=== PATIENT | female | born 1990 | race Caucasian/White ===

== ENCOUNTER → 2021-03-21 | Outpatient (REF) ==
[2021-03-21 16:37] LABS: RSV AMPLIFICATION NEGATIVE (NEGATIVE)
== END ==
LOC: M EMP 15:09
PROVIDERS: ATTEND Family Medicine
DX: Z11.52 Encounter for screening for COVID-19 (principal); Z20.822 Contact with and (suspected) exposure to COVID-19

== ENCOUNTER → 2021-03-23 | Outpatient (REF) | LOC: M EMP 15:46 | PROVIDERS: ATTEND Family Medicine | DX: Z11.52 Encounter for screening for COVID-19 (principal); Z20.822 Contact with and (suspected) exposure to COVID-19 ==

== ENCOUNTER → 2022-07-23 | Outpatient (REF) | payer OTHER | LOC: M LAB REF 08:49 | PROVIDERS: ATTEND Nurse Practitioner Family | DX: Z12.4 Encounter for screening for malignant neoplasm of cervix (principal) | CPT/HCPCS: 87624; G0123 ==

== ENCOUNTER 2023-01-22 14:01 | Observation (INO) | payer OTHER ==
[~2023-01-22] VITALS: Ht 167.6 cm; Wt 110.7 kg
[~2023-01-22 14:01] MED LIST: ALBU8.5H; ALPR0.5T3 PO; CBD OIL PA; DEXA4TA; FERR325T3 PO; LIDO30CR18 TOP; METO5TAB2 PO; OLAN1TAB16 PO; ONDA-84 PO; ONDA8TAB8 PO; OXYC-517 PO; PROC10TA5 PO; SERT50TA29 PO
[2023-01-22] MEDS ORDERED: METOCLOPRAMIDE INJ 10MG/2ML VIAL IV ONE (15:00)
[2023-01-22 15:01] LABS: BASO % 0.3 % (0.0-1.0); EOS % 0.3 % (0.0-3.0); HEMATOCRIT 30.4 % (36.0-47.0); LYMPH # 0.9 10^3/uL (1.5-5.0); LYMPH % 30.5 % (24.0-44.0); MEAN CORPUSCULAR HEMOGLOBIN 28.2 pg (27.0-33.0); MEAN CORPUSCULAR HGB CONC 32.9 g/dl (32.0-36.5); MEAN CORPUSCULAR VOLUME 85.6 fl (80.0-96.0); MONO # 0.3 10^3/uL (0.0-0.8); MONO % 10.8 % (2.0-8.0); NEUTROPHILS # 1.7 10^3/uL (1.5-8.5); NEUTROPHILS % 56.5 % (36.0-66.0); PLATELET COUNT, AUTOMATED 116 10^3/uL (150-450); RED BLOOD COUNT 3.55 10^6/uL (4.00-5.40); WHITE BLOOD COUNT 3.1 10^3/uL (4.0-10.0)
[2023-01-22 15:10] LABS: INR 1.12; PROTHROMBIN TIME 14.1 SECONDS (12.5-14.5)
[2023-01-22 15:11] LABS: PARTIAL THROMBOPLASTIN TIME 30.6 SECONDS (24.8-34.2)
[2023-01-22 15:29] LABS: LIPASE 32 U/L (12-53)
[2023-01-22 15:31] LABS: ALBUMIN 3.6 G/DL (3.2-5.2); ALKALINE PHOSPHATASE 99 U/L (46-116); ALT/SGPT 27 U/L (7.0-40); AST/SGOT 19 U/L (<34); BILIRUBIN,DIRECT 0.3 MG/DL (<0.4); BILIRUBIN,TOTAL 0.9 MG/DL (0.3-1.2); TOTAL PROTEIN 6.5 G/DL (5.7-8.2)
[2023-01-22] MEDS ORDERED: ISOVUE-370 76% 100ML VIAL As Ordered ONE (15:49)
[2023-01-22 16:52] LABS: CK-MB VALUE MASS < 1.0 NG/ML (<3.6)
[2023-01-22 16:53] LABS: CPK CREATINE PHOSPHOKINASE 31 U/L (34-145); MB/CK RELATIVE INDEX 3.22 (< OR =4)
[2023-01-22 18:15] VITALS: O2SAT 94
[2023-01-22] MEDS ORDERED: MOM 30ML SUSPENSION UDC PO PRN (18:20)
[2023-01-22] MEDS ORDERED: ACETAMINOPHEN TAB 650MG DOSE (2X325MG) PO PRN (18:20)
[2023-01-22] MEDS ORDERED: MAALOX 30 ML SUSP *UDC PO PRN (18:20)
[2023-01-22] MEDS ORDERED: POTASSIUM CHLORIDE 10MEQ SR TABLET PO ONE (19:00)
[2023-01-22] MEDS ORDERED: ONDANSETRON 4MG 2ML VIAL IV PRN (19:00)
[2023-01-22] MEDS ORDERED: HOME MED LIST COMPLETE! XX SCH (19:25)
[2023-01-22 20:00] VITALS: BP 135/84; TEMP 97.8; O2SAT 100
[2023-01-22] MEDS: MAG SULF 1GM/100ML (MAG RUN) 1 GM in IV 1 EA IV SCH ×2 (20:00→21:02)
[2023-01-22] MEDS: KCL 10MEQ/100ML SWI (KRUN) 10 MEQ in IV 1 EA IV SCH ×4 (20:00→23:00)
[2023-01-22] MEDS: DOCUSATE SODIUM 100MG CAPSULE PO SCH (21:02)
[2023-01-22] MEDS: ENOXAPARIN 120MG/0.8ML SYRINGE SC SCH (21:03)
[2023-01-22] MEDS ORDERED: RAMELTEON 8 MG TAB (ROZEREM) PO PRN (22:10)
[2023-01-23 00:15] VITALS: BP 119/76; TEMP 97.3; O2SAT 95
[2023-01-23] MEDS ORDERED: KCL 10MEQ/100ML SWI (KRUN) 10 MEQ in IV 1 EA IV ONE (02:00)
[2023-01-23 04:43] VITALS: BP 119/80; TEMP 97.9; O2SAT 97
[2023-01-23 06:22] LABS: BASO % 0.4 % (0.0-1.0); EOS % 0.4 % (0.0-3.0); HEMATOCRIT 25.8 % (36.0-47.0); HEMOGLOBIN 8.5 g/dl (12.0-15.5); LYMPH # 0.8 10^3/uL (1.5-5.0); LYMPH % 32.9 % (24.0-44.0); MEAN CORPUSCULAR HEMOGLOBIN 28.2 pg (27.0-33.0); MEAN CORPUSCULAR HGB CONC 32.9 g/dl (32.0-36.5); MEAN CORPUSCULAR VOLUME 85.7 fl (80.0-96.0); MONO # 0.4 10^3/uL (0.0-0.8); MONO % 15.6 % (2.0-8.0); NEUTROPHILS # 1.2 10^3/uL (1.5-8.5); NEUTROPHILS % 49.5 % (36.0-66.0); RED BLOOD COUNT 3.01 10^6/uL (4.00-5.40); WHITE BLOOD COUNT 2.4 10^3/uL (4.0-10.0)
[2023-01-23 06:53] LABS: PLATELET COUNT, AUTOMATED 85 10^3/uL (150-450)
[2023-01-23] MEDS ORDERED: LOVE0.01 SC (06:55)
[2023-01-23 07:10] LABS: ALBUMIN 3.2 G/DL (3.2-5.2); ALKALINE PHOSPHATASE 89 U/L (46-116); ALT/SGPT 23 U/L (7.0-40); AST/SGOT 16 U/L (<34); BILIRUBIN,TOTAL 0.7 MG/DL (0.3-1.2); BLOOD UREA NITROGEN 8 MG/DL (9-23); CALCIUM LEVEL 8.7 MG/DL (8.5-10.1); CARBON DIOXIDE LEVEL 31 MMOL/L (20-31); CHLORIDE LEVEL 101 MMOL/L (98-107); CREATININE FOR GFR 0.75 MG/DL (0.55-1.30); GLOMERULAR FILTRATION RATE > 60.0 (>60); GLUCOSE, FASTING 95 MG/DL (60-100); MAGNESIUM LEVEL 2.2 MG/DL (1.8-2.4); POTASSIUM SERUM 3.7 MMOL/L (3.5-5.1); SODIUM LEVEL 138 MMOL/L (136-145); TOTAL PROTEIN 5.7 G/DL (5.7-8.2)
[2023-01-23 08:00] VITALS: BP 123/80; TEMP 97.2; O2SAT 98
[2023-01-23] MEDS: DOCUSATE SODIUM 100MG CAPSULE PO SCH (09:11)
[2023-01-23] MEDS: ENOXAPARIN 120MG/0.8ML SYRINGE SC SCH (09:11)
[2023-01-23 10:54] LABS: HEMOGLOBIN 8.8 g/dl (12.0-15.5)
[2023-01-23 11:37] VITALS: BP 123/73; TEMP 97.9; O2SAT 97
== END 2023-01-23 16:00 | disposition home or self-care (01) ==
LOC: M ED 14:01 → M ED INP 14:02 → M PCU 19:59
PROVIDERS: ADMIT Internal Medicine; ATTEND Internal Medicine
DX: I26.99 Other pulmonary embolism without acute cor pulmonale (principal); I82.432 Acute embolism and thrombosis of left popliteal vein; I82.462 Acute embolism and thrombosis of left calf muscular vein; D61.818 Other pancytopenia; E87.6 Hypokalemia; E83.42 Hypomagnesemia; R14.0 Abdominal distension (gaseous); C22.1 Intrahepatic bile duct carcinoma; D68.2 Hereditary deficiency of other clotting factors; R11.2 Nausea with vomiting, unspecified; E28.2 Polycystic ovarian syndrome; F41.9 Anxiety disorder, unspecified; F32.A Depression, unspecified; Z79.899 Other long term (current) drug therapy; Z83.2 Family history of diseases of the blood and blood-forming organs and certain disorders involving the immune mechanism; Z87.891 Personal history of nicotine dependence
CPT/HCPCS: 36415; 36591; 71275; 76705; 80047; 80053; 80076; 82550; 82553; 83690; 83735; 84439; 84443; 84484; 84702; 85014; 85018; 85025; 85049; 85055; 85610; 85730; 86301; 86850; 86900; 86901; 87635; 93005; 93970; 96372; 96374; 96375; 99284; G0463; J1650; J2405; J2765; J3475; Q9967

== ENCOUNTER → 2023-08-11 | Outpatient (CLI) | payer OTHER ==
[~2023-08-11] MED LIST changes: +ENOX100I3 SQ; +ENOX120I3; +LEXA1TAB PO; +LOVE0.01 SC
[2023-08-11 12:33] LABS: BASO % 0.1 % (0.0-1.0); EOS # 0.1 10^3/uL (0.0-0.5); EOS % 0.9 % (0.0-3.0); HEMATOCRIT 31.4 % (36.0-47.0); HEMOGLOBIN 10.3 g/dl (12.0-15.5); LYMPH # 0.9 10^3/uL (1.5-5.0); LYMPH % 13.9 % (24.0-44.0); MEAN CORPUSCULAR HEMOGLOBIN 28.3 pg (27.0-33.0); MEAN CORPUSCULAR HGB CONC 32.8 g/dl (32.0-36.5); MEAN CORPUSCULAR VOLUME 86.3 fl (80.0-96.0); MONO # 0.4 10^3/uL (0.0-0.8); MONO % 5.3 % (2.0-8.0); NEUTROPHILS # 5.4 10^3/uL (1.5-8.5); NEUTROPHILS % 79.4 % (36.0-66.0); PLATELET COUNT, AUTOMATED 222 10^3/uL (150-450); RED BLOOD COUNT 3.64 10^6/uL (4.00-5.40); WHITE BLOOD COUNT 6.8 10^3/uL (4.0-10.0)
[2023-08-11 13:01] LABS: ALBUMIN 3.2 G/DL (3.2-5.2); ALKALINE PHOSPHATASE 439 U/L (46-116); ALT/SGPT 53 U/L (7.0-40); AST/SGOT 23 U/L (<34); BILIRUBIN,TOTAL 1.4 MG/DL (0.3-1.2); BLOOD UREA NITROGEN 10 MG/DL (9-23); CALCIUM LEVEL 9.1 MG/DL (8.5-10.1); CARBON DIOXIDE LEVEL 31 MMOL/L (20-31); CHLORIDE LEVEL 99 MMOL/L (98-107); CREATININE FOR GFR 0.64 MG/DL (0.55-1.30); GLOMERULAR FILTRATION RATE > 60.0 (>60); GLUCOSE, FASTING 113 MG/DL (60-100); POTASSIUM SERUM 3.7 MMOL/L (3.5-5.1); SODIUM LEVEL 137 MMOL/L (136-145); TOTAL PROTEIN 6.3 G/DL (5.7-8.2)
== END ==
LOC: M LAB 11:27
PROVIDERS: ATTEND Nurse Practitioner
DX: C22.1 Intrahepatic bile duct carcinoma (principal)

== ENCOUNTER 2023-11-08 09:18 | Emergency (ER) | payer OTHER ==
[~2023-11-08] VITALS: Ht 167.6 cm; Wt 79.8 kg
[~2023-11-08 09:18] MED LIST changes: +ONDA-284 PO; -ONDA8TAB8 PO
[2023-11-08] MEDS ORDERED: PROC5TAB57 PO (09:31)
[2023-11-08 12:39] LABS: EOS % 0.7 % (0.0-3.0); HEMATOCRIT 24.5 % (36.0-47.0); HEMOGLOBIN 7.5 g/dl (12.0-15.5); LYMPH # 0.4 10^3/uL (1.5-5.0); LYMPH % 26.7 % (24.0-44.0); MEAN CORPUSCULAR HEMOGLOBIN 28.4 pg (27.0-33.0); MEAN CORPUSCULAR HGB CONC 30.6 g/dl (32.0-36.5); MEAN CORPUSCULAR VOLUME 92.8 fl (80.0-96.0); MONO # 0.2 10^3/uL (0.0-0.8); MONO % 11.6 % (2.0-8.0); NEUTROPHILS % 58.9 % (36.0-66.0); PLATELET COUNT, AUTOMATED 144 10^3/uL (150-450); RED BLOOD COUNT 2.64 10^6/uL (4.00-5.40); WHITE BLOOD COUNT 1.5 10^3/uL (4.0-10.0)
[2023-11-08 12:54] LABS: NEUTROPHILS # 0.9 10^3/uL (1.5-8.5)
[2023-11-08 13:10] LABS: ALBUMIN 3.2 G/DL (3.2-5.2); ALKALINE PHOSPHATASE 341 U/L (46-116); ALT/SGPT 27 U/L (7.0-40); AST/SGOT 23 U/L (<34); BILIRUBIN,TOTAL 0.6 MG/DL (0.3-1.2); BLOOD UREA NITROGEN 8 MG/DL (9-23); CALCIUM LEVEL 8.8 MG/DL (8.5-10.1); CARBON DIOXIDE LEVEL 28 MMOL/L (20-31); CHLORIDE LEVEL 104 MMOL/L (98-107); GLOMERULAR FILTRATION RATE > 60.0 (>60); GLUCOSE, FASTING 90 MG/DL (60-100); SODIUM LEVEL 136 MMOL/L (136-145); TOTAL PROTEIN 5.9 G/DL (5.7-8.2)
[2023-11-08 13:13] VITALS: BP 131/86; TEMP 98.7; O2SAT 99
== END 2023-11-08 13:59 | disposition home or self-care (01) ==
LOC: M ED 09:18
DX: R93.5 Abnormal findings on diagnostic imaging of other abdominal regions, including retroperitoneum (principal); C22.1 Intrahepatic bile duct carcinoma; C79.63 Secondary malignant neoplasm of bilateral ovaries; D68.51 Activated protein C resistance; Z79.899 Other long term (current) drug therapy

== ENCOUNTER 2023-12-14 16:42 | Inpatient (IN) | payer OTHER ==
[~2023-12-14] VITALS: Ht 167.6 cm; Wt 74.6 kg
[~2023-12-14 16:42] MED LIST changes: +PROC5TAB57 PO
[2023-12-14] MEDS: MORPHINE 2 MG/ML 1ML VIAL IV ONE (18:20)
[2023-12-14 18:30] LABS: HEMATOCRIT 25.3 % (36.0-47.0); HEMOGLOBIN 7.8 g/dl (12.0-15.5); MEAN CORPUSCULAR HEMOGLOBIN 28.7 pg (27.0-33.0); MEAN CORPUSCULAR HGB CONC 30.8 g/dl (32.0-36.5); PLATELET COUNT, AUTOMATED 142 10^3/uL (150-450); RED BLOOD COUNT 2.72 10^6/uL (4.00-5.40); WHITE BLOOD COUNT 20.6 10^3/uL (4.0-10.0)
[2023-12-14] MEDS ORDERED: SODIUM CHLORIDE 0.9% INJ 10 ML SYR IV PRN (18:55)
[2023-12-14 18:56] LABS: LYMPHOCYTES 6 % (16-44); MONOCYTES 1 % (0-5); NEUTROPHILS 85 % (28-66)
[2023-12-14 18:57] LABS: ANISOCYTOSIS 2+; HYPOCHROMASIA 1+; PLATELET ESTIMATE DECREASED (NORMAL); POLYCHROMASIA 1+
[2023-12-14 18:58] LABS: ALBUMIN 2.1 G/DL (3.2-5.2); ALKALINE PHOSPHATASE 539 U/L (46-116); ALT/SGPT 55 U/L (7.0-40); AST/SGOT 9 U/L (<34); BILIRUBIN,DIRECT 1.7 MG/DL (<0.4); BILIRUBIN,TOTAL 2.5 MG/DL (0.3-1.2); BLOOD UREA NITROGEN 14 MG/DL (9-23); CARBON DIOXIDE LEVEL 28 MMOL/L (20-31); CHLORIDE LEVEL 100 MMOL/L (98-107); CREATININE FOR GFR 0.49 MG/DL (0.55-1.30); GLOMERULAR FILTRATION RATE > 60.0 (>60); GLUCOSE, FASTING 115 MG/DL (60-100); POTASSIUM SERUM 4.3 MMOL/L (3.5-5.1); SODIUM LEVEL 129 MMOL/L (136-145); TOTAL PROTEIN 5.1 G/DL (5.7-8.2)
[2023-12-14] MEDS: NS 1,000 ML IV ONE (19:15)
[2023-12-14] MEDS: ONDANSETRON 4MG 2ML VIAL IV ONE (19:15)
[2023-12-14] MEDS ORDERED: ISOVUE-370 76% 100ML VIAL As Ordered ONE (19:29)
[2023-12-14] MEDS ORDERED: ONDANSETRON 4MG 2ML VIAL IV PRN (21:35)
[2023-12-14] MEDS: HYDROMORPHONE HCL 0.5 MG/ 0.5 ML SYRINGE IV PRN (22:13)
[2023-12-14] MEDS: PIPERACILLIN/TAZOBACTAM SOD 4.5 GM in D5W MINI-BAG PLUS 50 ML IV ONE (22:15)
[2023-12-14] MEDS: metroNIDAZOLE 500 MG in IV 1 EA IV ONE (23:40)
[2023-12-15] MEDS: KCL 20MEQ in NS 1000ML 1,000 ML IV SCH (00:48)
[2023-12-15] MEDS ORDERED: ONDANSETRON 4MG 2ML VIAL IV PRN (01:00)
[2023-12-15] MEDS ORDERED: DEXA4TA PO (01:50)
[2023-12-15] MEDS ORDERED: DEXA2TA PO (01:50)
[2023-12-15] MEDS ORDERED: ENOX80IN3 INJ (01:50)
[2023-12-15] MEDS ORDERED: PROC10TA5 PO (01:50)
[2023-12-15] MEDS ORDERED: HOME MED LIST COMPLETE! XX SCH (01:55)
[2023-12-15] MEDS: PIPERACILLIN/TAZOBACTAM SOD 4.5 GM in D5W MINI-BAG PLUS 50 ML IV SCH ×2 (04:44→13:31)
[2023-12-15] MEDS: metroNIDAZOLE 500 MG in IV 1 EA IV SCH (06:01)
[2023-12-15] MEDS ORDERED: ALPRAZolam 0.5 MG TAB PO PRN (07:10)
[2023-12-15] MEDS: HYDROMORPHONE HCL 0.5 MG/ 0.5 ML SYRINGE IV PRN (07:42)
[2023-12-15 08:38] LABS: CHLORIDE,RANDOM URINE 32 MMOL/L
[2023-12-15 08:48] LABS: CREATININE,RANDOM URINE 132.4 MG/DL
[2023-12-15 08:50] LABS: SODIUM,RANDOM URINE < 10 MMOL/L
[2023-12-15 08:53] LABS: HEMATOCRIT 26.4 % (36.0-47.0); MEAN CORPUSCULAR HEMOGLOBIN 28.2 pg (27.0-33.0); MEAN CORPUSCULAR HGB CONC 30.3 g/dl (32.0-36.5); PLATELET COUNT, AUTOMATED 153 10^3/uL (150-450); RED BLOOD COUNT 2.84 10^6/uL (4.00-5.40); WHITE BLOOD COUNT 17.9 10^3/uL (4.0-10.0)
[2023-12-15 09:05] LABS: OSMOLALITY URINE 800 MOSM/KG (50-1400)
[2023-12-15 09:19] LABS: ANISOCYTOSIS 1+; LYMPHOCYTES 3 % (16-44); MONOCYTES 4 % (0-5); NEUTROPHILS 93 % (28-66); PLATELET CLUMPS SMALL AMT; PLATELET ESTIMATE NORMAL (NORMAL); POIKILOCYTOSIS 1+; POLYCHROMASIA 1+
[2023-12-15 09:24] LABS: OSMOLALITY SERUM 274 MOSM/KG (275-295)
[2023-12-15 09:30] LABS: ALKALINE PHOSPHATASE 457 U/L (46-116); ALT/SGPT 42 U/L (7.0-40); AST/SGOT 9 U/L (<34); BLOOD UREA NITROGEN 13 MG/DL (9-23); CALCIUM LEVEL 8.2 MG/DL (8.5-10.1); CARBON DIOXIDE LEVEL 25 MMOL/L (20-31); CHLORIDE LEVEL 102 MMOL/L (98-107); CREATININE FOR GFR 0.51 MG/DL (0.55-1.30); GLOMERULAR FILTRATION RATE > 60.0 (>60); GLUCOSE, FASTING 119 MG/DL (60-100); POTASSIUM SERUM 4.5 MMOL/L (3.5-5.1); SODIUM LEVEL 132 MMOL/L (136-145); TOTAL PROTEIN 4.9 G/DL (5.7-8.2)
[2023-12-15] MEDS ORDERED: NS 1,000 ML IV SCH ×2 (09:30→11:35)
[2023-12-15 09:37] LABS: PROCALCITONIN 1.14 ng/ml
[2023-12-15] MEDS ORDERED: LIDOCAINE 1% MDV 20ML VIAL As Ordered ONE (10:18)
[2023-12-15] MEDS ORDERED: ISOVUE-300 61% 100ML VIAL As Ordered ONE (10:18)
[2023-12-15] MEDS ORDERED: fentaNYL 100 MCG/2 ML INJECTION As Ordered ONE (10:37)
[2023-12-15] MEDS ORDERED: MIDAZOLAM INJ 2MG/2ML VIAL As Ordered ONE (10:38)
[2023-12-15 10:41] LABS: INR 1.45; PROTHROMBIN TIME 17.2 SECONDS (12.5-14.5)
[2023-12-15] MEDS: PANTOPRAZOLE 40MG VIAL IV SCH (12:12)
[2023-12-15] MEDS: LR 1,000 ML IV SCH (12:21)
[2023-12-15 15:09] VITALS: BP 141/89; TEMP 100.1; O2SAT 95
[2023-12-15 15:27] VITALS: O2SAT 96
[2023-12-15] MEDS ORDERED: VANCOMYCIN HCL 1,000 MG, VIAL MATE ADAPTER 1 EACH in D5W 250 ML IV SCH (15:30)
[2023-12-15] MEDS ORDERED: ACETAMINOPHEN TAB 650MG DOSE (2X325MG) PO PRN (15:45)
[2023-12-15 16:00] VITALS: BP 131/88; TEMP 98.1; O2SAT 97
[2023-12-15] MEDS: ACETAMINOPHEN *IV* 1,000 MG in IV 1 EA IV ONE (16:20)
[2023-12-15] MEDS: NS 500 ML IV ONE (16:21)
[2023-12-15] MEDS: VANCOMYCIN HCL 750 MG, VIAL MATE ADAPTER 1 EACH in D5W 250 ML IV ONE ×2 (16:21→18:11)
[2023-12-15 20:00] VITALS: BP 130/92; TEMP 96; O2SAT 98
[2023-12-15] MEDS: VANCOMYCIN HCL 750 MG, VIAL MATE ADAPTER 1 EACH in D5W 250 ML IV SCH (22:22)
[2023-12-15] MEDS: VANCOMYCIN HCL 500 MG in D5W MINI-BAG PLUS 100 ML IV SCH (23:28)
[2023-12-16] VITALS (7 sets, daily range): BP systolic 121–137; BP diastolic 56–90; TEMP 96.7–98.5; O2SAT 93–98
[2023-12-16 06:19] LABS: BASO % 0.2 % (0.0-1.0); EOS # 0.1 10^3/uL (0.0-0.5); EOS % 0.8 % (0.0-3.0); HEMATOCRIT 25.1 % (36.0-47.0); HEMOGLOBIN 7.3 g/dl (12.0-15.5); LYMPH # 0.5 10^3/uL (1.5-5.0); LYMPH % 4.7 % (24.0-44.0); MEAN CORPUSCULAR HEMOGLOBIN 27.5 pg (27.0-33.0); MEAN CORPUSCULAR HGB CONC 29.1 g/dl (32.0-36.5); MEAN CORPUSCULAR VOLUME 94.7 fl (80.0-96.0); MONO # 0.6 10^3/uL (0.0-0.8); MONO % 5.1 % (2.0-8.0); NEUTROPHILS # 10.2 10^3/uL (1.5-8.5); NEUTROPHILS % 88.7 % (36.0-66.0); PLATELET COUNT, AUTOMATED 143 10^3/uL (150-450); RED BLOOD COUNT 2.65 10^6/uL (4.00-5.40); WHITE BLOOD COUNT 11.5 10^3/uL (4.0-10.0)
[2023-12-16 06:45] LABS: ALBUMIN 1.8 G/DL (3.2-5.2); ALKALINE PHOSPHATASE 455 U/L (46-116); ALT/SGPT 35 U/L (7.0-40); AST/SGOT 23 U/L (<34); BILIRUBIN,TOTAL 2.1 MG/DL (0.3-1.2); BLOOD UREA NITROGEN 11 MG/DL (9-23); CARBON DIOXIDE LEVEL 26 MMOL/L (20-31); CHLORIDE LEVEL 101 MMOL/L (98-107); CREATININE FOR GFR 0.42 MG/DL (0.55-1.30); GLOMERULAR FILTRATION RATE > 60.0 (>60); GLUCOSE, FASTING 106 MG/DL (60-100); MAGNESIUM LEVEL 1.8 MG/DL (1.8-2.4); POTASSIUM SERUM 4.1 MMOL/L (3.5-5.1); SODIUM LEVEL 134 MMOL/L (136-145); TOTAL PROTEIN 4.7 G/DL (5.7-8.2)
[2023-12-16] MEDS: ENOXAPARIN 80MG/0.8ML SYRINGE (J1650 PER 10MG) SQ SCH (08:36)
[2023-12-16] MEDS: MOM 30ML SUSPENSION UDC PO SCH (10:37)
[2023-12-16] MEDS: VANCOMYCIN HCL 1,000 MG, VIAL MATE ADAPTER 1 EACH in D5W 250 ML IV SCH (14:34)
[2023-12-17 04:00] VITALS: BP 130/82; TEMP 97.4; O2SAT 96
[2023-12-17 08:37] LABS: BASO % 0.1 % (0.0-1.0); EOS # 0.1 10^3/uL (0.0-0.5); EOS % 0.5 % (0.0-3.0); HEMATOCRIT 24.8 % (36.0-47.0); HEMOGLOBIN 7.2 g/dl (12.0-15.5); LYMPH # 0.6 10^3/uL (1.5-5.0); LYMPH % 6.7 % (24.0-44.0); MEAN CORPUSCULAR HEMOGLOBIN 27.6 pg (27.0-33.0); MONO # 0.5 10^3/uL (0.0-0.8); MONO % 5.6 % (2.0-8.0); NEUTROPHILS # 7.9 10^3/uL (1.5-8.5); PLATELET COUNT, AUTOMATED 141 10^3/uL (150-450); RED BLOOD COUNT 2.61 10^6/uL (4.00-5.40); WHITE BLOOD COUNT 9.2 10^3/uL (4.0-10.0)
[2023-12-17 09:12] LABS: ALBUMIN 1.8 G/DL (3.2-5.2); ALKALINE PHOSPHATASE 491 U/L (46-116); ALT/SGPT 29 U/L (7.0-40); AST/SGOT 25 U/L (<34); BILIRUBIN,TOTAL 1.6 MG/DL (0.3-1.2); BLOOD UREA NITROGEN 11 MG/DL (9-23); CALCIUM LEVEL 8.2 MG/DL (8.5-10.1); CARBON DIOXIDE LEVEL 28 MMOL/L (20-31); CHLORIDE LEVEL 100 MMOL/L (98-107); CREATININE FOR GFR 0.77 MG/DL (0.55-1.30); GLOMERULAR FILTRATION RATE > 60.0 (>60); GLUCOSE, FASTING 100 MG/DL (60-100); MAGNESIUM LEVEL 1.8 MG/DL (1.8-2.4); POTASSIUM SERUM 3.8 MMOL/L (3.5-5.1); SODIUM LEVEL 134 MMOL/L (136-145); TOTAL PROTEIN 4.6 G/DL (5.7-8.2)
[2023-12-17 12:22] VITALS: BP 120/82; TEMP 97.5; O2SAT 95
[2023-12-17 19:54] VITALS: BP 129/79; TEMP 97.8; O2SAT 95
[2023-12-18] VITALS (10 sets, daily range): BP systolic 112–125; BP diastolic 69–80; TEMP 97.1–98.3; O2SAT 94–100
[2023-12-18 07:18] LABS: BASO % 0.2 % (0.0-1.0); EOS # 0.1 10^3/uL (0.0-0.5); EOS % 0.8 % (0.0-3.0); HEMATOCRIT 21.4 % (36.0-47.0); LYMPH # 0.6 10^3/uL (1.5-5.0); LYMPH % 10.4 % (24.0-44.0); MEAN CORPUSCULAR HEMOGLOBIN 27.7 pg (27.0-33.0); MEAN CORPUSCULAR VOLUME 95.5 fl (80.0-96.0); MONO # 0.4 10^3/uL (0.0-0.8); NEUTROPHILS # 4.9 10^3/uL (1.5-8.5); NEUTROPHILS % 80.4 % (36.0-66.0); PLATELET COUNT, AUTOMATED 117 10^3/uL (150-450); RED BLOOD COUNT 2.24 10^6/uL (4.00-5.40)
[2023-12-18 07:48] LABS: VANCOMYCIN RANDOM 14.5 UG/ML
[2023-12-18 07:49] LABS: C REACTIVE PROTEIN QUANTITATIV 19.9 MG/DL (<1.0)
[2023-12-18 07:50] LABS: ALBUMIN 1.7 G/DL (3.2-5.2); BILIRUBIN,TOTAL 1.4 MG/DL (0.3-1.2); CALCIUM LEVEL 8.2 MG/DL (8.5-10.1); CREATININE FOR GFR 1.31 MG/DL (0.55-1.30); GLOMERULAR FILTRATION RATE 49.2 (>60); MAGNESIUM LEVEL 2.2 MG/DL (1.8-2.4); POTASSIUM SERUM 3.7 MMOL/L (3.5-5.1); TOTAL PROTEIN 4.5 G/DL (5.7-8.2)
[2023-12-18 07:57] LABS: HEMOGLOBIN 6.2 g/dl (12.0-15.5)
[2023-12-18] MEDS ORDERED: VANCOMYCIN HCL 750 MG, VIAL MATE ADAPTER 1 EACH in D5W 250 ML IV SCH (09:00)
[2023-12-18] MEDS: KETOROLAC 30 MG/ML 1ML VIAL IV ONE (09:21)
[2023-12-18 11:18] LABS: PERCENT SATURATION 12.7 % (13.2-45.0)
[2023-12-18 11:20] LABS: FOLATE 6.43 NG/ML (>5.4)
[2023-12-18] MEDS: FAT EMULSION IV 250 ML IV ONE (18:33)
[2023-12-18] MEDS: AMINO AC/ELECTROLYTE/DEX/CALC 1,000 ML IV SCH (18:33)
[2023-12-19] VITALS: BP 116/84; TEMP 97.6; O2SAT 95
[2023-12-19 04:00] VITALS: BP 107/77; TEMP 97.6; O2SAT 97
[2023-12-19 07:10] LABS: BASO % 0.2 % (0.0-1.0); EOS # 0.1 10^3/uL (0.0-0.5); EOS % 1.1 % (0.0-3.0); HEMATOCRIT 23.9 % (36.0-47.0); HEMOGLOBIN 7.1 g/dl (12.0-15.5); LYMPH # 0.6 10^3/uL (1.5-5.0); LYMPH % 8.7 % (24.0-44.0); MEAN CORPUSCULAR HEMOGLOBIN 28.4 pg (27.0-33.0); MEAN CORPUSCULAR HGB CONC 29.7 g/dl (32.0-36.5); MEAN CORPUSCULAR VOLUME 95.6 fl (80.0-96.0); MONO # 0.4 10^3/uL (0.0-0.8); MONO % 5.8 % (2.0-8.0); NEUTROPHILS # 5.4 10^3/uL (1.5-8.5); NEUTROPHILS % 82.5 % (36.0-66.0); PLATELET COUNT, AUTOMATED 113 10^3/uL (150-450); WHITE BLOOD COUNT 6.6 10^3/uL (4.0-10.0)
[2023-12-19 07:33] LABS: ALBUMIN 1.7 G/DL (3.2-5.2); ALKALINE PHOSPHATASE 819 U/L (46-116); ALT/SGPT 28 U/L (7.0-40); AST/SGOT 36 U/L (<34); BILIRUBIN,TOTAL 1.3 MG/DL (0.3-1.2); BLOOD UREA NITROGEN 15 MG/DL (9-23); CALCIUM LEVEL 8.5 MG/DL (8.5-10.1); CARBON DIOXIDE LEVEL 29 MMOL/L (20-31); CHLORIDE LEVEL 104 MMOL/L (98-107); GLOMERULAR FILTRATION RATE > 60.0 (>60); GLUCOSE, FASTING 120 MG/DL (60-100); MAGNESIUM LEVEL 2.2 MG/DL (1.8-2.4); POTASSIUM SERUM 3.1 MMOL/L (3.5-5.1); SODIUM LEVEL 137 MMOL/L (136-145); TOTAL PROTEIN 4.6 G/DL (5.7-8.2)
[2023-12-19 08:00] VITALS: BP 117/78; TEMP 97.3; O2SAT 95
[2023-12-19 12:00] VITALS: BP 119/86; TEMP 97.7; O2SAT 98
[2023-12-19] MEDS: PERCOCET 5MG/325MG TAB PO PRN (13:35)
[2023-12-19] MEDS: POTASSIUM CHLORIDE 10MEQ SR TABLET PO ONE ×2 (13:36→18:18)
[2023-12-19 16:00] VITALS: BP 125/83; TEMP 97; O2SAT 100
[2023-12-19] MEDS: FAT EMULSION IV 250 ML IV ONE (18:17)
[2023-12-19] MEDS: MULTIVITAMIN -ADULT INJECTION 10 ML, ZINC/COPPER/MANGANESE/SELENIUM 1 ML in AMINO AC/EL... IV SCH (18:17)
[2023-12-19 20:00] VITALS: BP 120/87; TEMP 97.6; O2SAT 98
[2023-12-20] VITALS: BP 124/82; TEMP 97.6; O2SAT 97
[2023-12-20 04:00] VITALS: BP 132/87; TEMP 98.3; O2SAT 97
[2023-12-20 07:09] LABS: BASO % 0.1 % (0.0-1.0); EOS # 0.1 10^3/uL (0.0-0.5); HEMATOCRIT 26.1 % (36.0-47.0); HEMOGLOBIN 7.7 g/dl (12.0-15.5); LYMPH # 0.7 10^3/uL (1.5-5.0); LYMPH % 7.9 % (24.0-44.0); MEAN CORPUSCULAR HGB CONC 29.5 g/dl (32.0-36.5); MEAN CORPUSCULAR VOLUME 94.9 fl (80.0-96.0); MONO # 0.4 10^3/uL (0.0-0.8); MONO % 4.9 % (2.0-8.0); NEUTROPHILS # 7.3 10^3/uL (1.5-8.5); NEUTROPHILS % 83.7 % (36.0-66.0); PLATELET COUNT, AUTOMATED 146 10^3/uL (150-450); RED BLOOD COUNT 2.75 10^6/uL (4.00-5.40); WHITE BLOOD COUNT 8.8 10^3/uL (4.0-10.0)
[2023-12-20 07:36] LABS: ALBUMIN 1.8 G/DL (3.2-5.2); ALKALINE PHOSPHATASE 811 U/L (46-116); ALT/SGPT 35 U/L (7.0-40); AST/SGOT 50 U/L (<34); BILIRUBIN,TOTAL 1.3 MG/DL (0.3-1.2); BLOOD UREA NITROGEN 15 MG/DL (9-23); CALCIUM LEVEL 8.4 MG/DL (8.5-10.1); CARBON DIOXIDE LEVEL 27 MMOL/L (20-31); CHLORIDE LEVEL 103 MMOL/L (98-107); CREATININE FOR GFR 0.83 MG/DL (0.55-1.30); GLOMERULAR FILTRATION RATE > 60.0 (>60); GLUCOSE, FASTING 114 MG/DL (60-100); POTASSIUM SERUM 3.6 MMOL/L (3.5-5.1); SODIUM LEVEL 136 MMOL/L (136-145); TOTAL PROTEIN 4.8 G/DL (5.7-8.2)
[2023-12-20 11:35] VITALS: BP 126/84; TEMP 96.6; TEMP 98.7; O2SAT 96
[2023-12-20] MEDS: oxyCODONE 5MG TAB PO PRN (14:32)
[2023-12-20] MEDS ORDERED: SODIUM CHLORIDE 0.9% INJ 10 ML SYR IV PRN (15:50)
[2023-12-20] MEDS: HYDROMORPHONE HCL 0.5 MG/ 0.5 ML SYRINGE IV PRN (16:10)
[2023-12-20 20:07] VITALS: BP 130/89; TEMP 97.9; O2SAT 98
[2023-12-21 04:00] VITALS: BP 127/89; TEMP 97.7; O2SAT 96
[2023-12-21 06:44] LABS: BASO % 0.3 % (0.0-1.0); EOS # 0.1 10^3/uL (0.0-0.5); EOS % 0.4 % (0.0-3.0); HEMATOCRIT 26.5 % (36.0-47.0); HEMOGLOBIN 7.9 g/dl (12.0-15.5); LYMPH # 0.8 10^3/uL (1.5-5.0); LYMPH % 7.1 % (24.0-44.0); MEAN CORPUSCULAR HEMOGLOBIN 28.1 pg (27.0-33.0); MEAN CORPUSCULAR HGB CONC 29.8 g/dl (32.0-36.5); MEAN CORPUSCULAR VOLUME 94.3 fl (80.0-96.0); MONO # 0.5 10^3/uL (0.0-0.8); MONO % 4.3 % (2.0-8.0); NEUTROPHILS # 9.9 10^3/uL (1.5-8.5); NEUTROPHILS % 85.4 % (36.0-66.0); PLATELET COUNT, AUTOMATED 134 10^3/uL (150-450); RED BLOOD COUNT 2.81 10^6/uL (4.00-5.40); WHITE BLOOD COUNT 11.6 10^3/uL (4.0-10.0)
[2023-12-21 07:58] LABS: ALBUMIN 1.8 G/DL (3.2-5.2); ALKALINE PHOSPHATASE 1182 U/L (46-116); ALT/SGPT 98 U/L (7.0-40); AST/SGOT 166 U/L (<34); BILIRUBIN,TOTAL 4.2 MG/DL (0.3-1.2); BLOOD UREA NITROGEN 15 MG/DL (9-23); CALCIUM LEVEL 8.2 MG/DL (8.5-10.1); CARBON DIOXIDE LEVEL 27 MMOL/L (20-31); CHLORIDE LEVEL 101 MMOL/L (98-107); CREATININE FOR GFR 0.76 MG/DL (0.55-1.30); GLOMERULAR FILTRATION RATE > 60.0 (>60); GLUCOSE, FASTING 101 MG/DL (60-100); MAGNESIUM LEVEL 1.9 MG/DL (1.8-2.4); SODIUM LEVEL 134 MMOL/L (136-145); TOTAL PROTEIN 4.8 G/DL (5.7-8.2)
[2023-12-21] MEDS: SODIUM CHLORIDE 0.9% INJ 10 ML SYR IV SCH (08:58)
[2023-12-21] MEDS: GASTROGRAFIN SOLUTION 30ML PO SCH (10:27)
[2023-12-21 12:00] VITALS: BP 145/89; TEMP 97; O2SAT 93
[2023-12-21 20:40] VITALS: BP 125/87; TEMP 97.7; O2SAT 88
[2023-12-22 05:39] VITALS: BP 124/86; TEMP 97; O2SAT 97
[2023-12-22 06:20] LABS: BASO % 0.1 % (0.0-1.0); EOS % 0.3 % (0.0-3.0); HEMATOCRIT 25.8 % (36.0-47.0); HEMOGLOBIN 7.8 g/dl (12.0-15.5); LYMPH # 0.8 10^3/uL (1.5-5.0); MEAN CORPUSCULAR HEMOGLOBIN 28.3 pg (27.0-33.0); MEAN CORPUSCULAR HGB CONC 30.2 g/dl (32.0-36.5); MEAN CORPUSCULAR VOLUME 93.5 fl (80.0-96.0); MONO # 0.4 10^3/uL (0.0-0.8); MONO % 3.1 % (2.0-8.0); NEUTROPHILS # 11.3 10^3/uL (1.5-8.5); NEUTROPHILS % 88.5 % (36.0-66.0); PLATELET COUNT, AUTOMATED 123 10^3/uL (150-450); RED BLOOD COUNT 2.76 10^6/uL (4.00-5.40); WHITE BLOOD COUNT 12.8 10^3/uL (4.0-10.0)
[2023-12-22 07:00] LABS: ALBUMIN 1.7 G/DL (3.2-5.2); ALKALINE PHOSPHATASE 1242 U/L (46-116); ALT/SGPT 111 U/L (7.0-40); AST/SGOT 136 U/L (<34); BILIRUBIN,TOTAL 6.2 MG/DL (0.3-1.2); BLOOD UREA NITROGEN 14 MG/DL (9-23); CALCIUM LEVEL 8.6 MG/DL (8.5-10.1); CARBON DIOXIDE LEVEL 27 MMOL/L (20-31); CHLORIDE LEVEL 100 MMOL/L (98-107); CREATININE FOR GFR 0.73 MG/DL (0.55-1.30); GLOMERULAR FILTRATION RATE > 60.0 (>60); GLUCOSE, FASTING 98 MG/DL (60-100); MAGNESIUM LEVEL 1.8 MG/DL (1.8-2.4); POTASSIUM SERUM 3.7 MMOL/L (3.5-5.1); SODIUM LEVEL 133 MMOL/L (136-145); TOTAL PROTEIN 4.7 G/DL (5.7-8.2)
[2023-12-22 12:00] VITALS: BP 136/87; TEMP 97.3; O2SAT 96
[2023-12-22 14:54] LABS: APPEARANCE, BODY FLUID CLEAR (CLEAR); ASCITES FL COLOR YELLOW (COLORLESS); SOURCE, BODY FLUID ASCITES
[2023-12-22 15:20] LABS: SOURCE, BODY FLUID ALBUMIN ASCITES
[2023-12-22 15:25] LABS: SOURCE, BODY FLUID GLUCOSE ASCITES
[2023-12-22 15:26] LABS: SOURCE, BODY FLUID TOT PROTEIN ASCITES; TOTAL PROTEIN, BODY FLUID < 2.0 G/DL (NOT ESTABLISHED)
[2023-12-22 21:11] VITALS: BP 131/83; TEMP 97.9; O2SAT 95
[2023-12-23 04:00] VITALS: BP 130/85; TEMP 96.8; O2SAT 94
[2023-12-23 06:26] LABS: BASO % 0.2 % (0.0-1.0); EOS % 0.2 % (0.0-3.0); HEMATOCRIT 23.9 % (36.0-47.0); HEMOGLOBIN 7.3 g/dl (12.0-15.5); LYMPH # 0.8 10^3/uL (1.5-5.0); LYMPH % 5.3 % (24.0-44.0); MEAN CORPUSCULAR HEMOGLOBIN 28.6 pg (27.0-33.0); MEAN CORPUSCULAR HGB CONC 30.5 g/dl (32.0-36.5); MEAN CORPUSCULAR VOLUME 93.7 fl (80.0-96.0); MONO # 0.4 10^3/uL (0.0-0.8); MONO % 2.8 % (2.0-8.0); NEUTROPHILS # 13.4 10^3/uL (1.5-8.5); NEUTROPHILS % 90.2 % (36.0-66.0); PLATELET COUNT, AUTOMATED 115 10^3/uL (150-450); RED BLOOD COUNT 2.55 10^6/uL (4.00-5.40); WHITE BLOOD COUNT 14.9 10^3/uL (4.0-10.0)
[2023-12-23 07:06] LABS: ALBUMIN 1.7 G/DL (3.2-5.2); ALKALINE PHOSPHATASE 1305 U/L (46-116); ALT/SGPT 102 U/L (7.0-40); AST/SGOT 105 U/L (<34); BILIRUBIN,DIRECT 5.6 MG/DL (<0.4); BILIRUBIN,TOTAL 7.3 MG/DL (0.3-1.2); BLOOD UREA NITROGEN 15 MG/DL (9-23); CALCIUM LEVEL 8.7 MG/DL (8.5-10.1); CARBON DIOXIDE LEVEL 27 MMOL/L (20-31); CHLORIDE LEVEL 100 MMOL/L (98-107); CREATININE FOR GFR 0.64 MG/DL (0.55-1.30); GLOMERULAR FILTRATION RATE > 60.0 (>60); GLUCOSE, FASTING 94 MG/DL (60-100); MAGNESIUM LEVEL 1.7 MG/DL (1.8-2.4); PHOSPHORUS LEVEL 3.9 MG/DL (2.5-4.9); POTASSIUM SERUM 3.7 MMOL/L (3.5-5.1); SODIUM LEVEL 133 MMOL/L (136-145); TOTAL PROTEIN 4.7 G/DL (5.7-8.2)
[2023-12-23] MEDS: MAG SULF 1GM/100ML (MAG RUN) 1 GM in IV 1 EA IV ONE (07:45)
[2023-12-23 11:06] LABS: INR 1.24; PROTHROMBIN TIME 15.3 SECONDS (12.5-14.5)
[2023-12-23 12:00] VITALS: BP 126/86; TEMP 97; O2SAT 95
[2023-12-23] MEDS ORDERED: oxyCODONE 5MG TAB PO PRN ×2 (12:55)
[2023-12-23] MEDS: MORPHINE 30 MG SA TAB PO SCH (13:08)
[2023-12-23] MEDS: HYDROMORPHONE HCL 0.5 MG/ 0.5 ML SYRINGE IV PRN (13:19)
[2023-12-23] MEDS: traZODone 50 MG TAB PO SCH (20:27)
[2023-12-23 20:34] VITALS: BP 127/88; TEMP 97.5
[2023-12-24 00:43] VITALS: O2SAT 96
[2023-12-24 05:55] VITALS: BP 140/91; TEMP 97.9
[2023-12-24 07:42] LABS: BASO % 0.2 % (0.0-1.0); EOS # 0.1 10^3/uL (0.0-0.5); EOS % 0.4 % (0.0-3.0); HEMATOCRIT 24.8 % (36.0-47.0); HEMOGLOBIN 7.5 g/dl (12.0-15.5); LYMPH # 0.9 10^3/uL (1.5-5.0); LYMPH % 5.3 % (24.0-44.0); MEAN CORPUSCULAR HGB CONC 30.2 g/dl (32.0-36.5); MEAN CORPUSCULAR VOLUME 92.5 fl (80.0-96.0); MONO # 0.5 10^3/uL (0.0-0.8); MONO % 3.3 % (2.0-8.0); NEUTROPHILS # 14.6 10^3/uL (1.5-8.5); NEUTROPHILS % 89.8 % (36.0-66.0); PLATELET COUNT, AUTOMATED 150 10^3/uL (150-450); RED BLOOD COUNT 2.68 10^6/uL (4.00-5.40); WHITE BLOOD COUNT 16.2 10^3/uL (4.0-10.0)
[2023-12-24 08:34] LABS: ALBUMIN 1.6 G/DL (3.2-5.2); ALKALINE PHOSPHATASE 1469 U/L (46-116); ALT/SGPT 98 U/L (7.0-40); AST/SGOT 111 U/L (<34); BILIRUBIN,DIRECT 6.3 MG/DL (<0.4); BILIRUBIN,TOTAL 8.1 MG/DL (0.3-1.2); BLOOD UREA NITROGEN 16 MG/DL (9-23); CALCIUM LEVEL 8.3 MG/DL (8.5-10.1); CARBON DIOXIDE LEVEL 27 MMOL/L (20-31); CHLORIDE LEVEL 97 MMOL/L (98-107); CREATININE FOR GFR 0.66 MG/DL (0.55-1.30); GLOMERULAR FILTRATION RATE > 60.0 (>60); GLUCOSE, FASTING 100 MG/DL (60-100); MAGNESIUM LEVEL 1.8 MG/DL (1.8-2.4); PHOSPHORUS LEVEL 3.3 MG/DL (2.5-4.9); POTASSIUM SERUM 3.6 MMOL/L (3.5-5.1); SODIUM LEVEL 130 MMOL/L (136-145); TOTAL PROTEIN 4.8 G/DL (5.7-8.2)
[2023-12-24 12:00] VITALS: BP 121/71; TEMP 97.9; O2SAT 92
[2023-12-24] MEDS: HYDROMORPHONE HCL 0.5 MG/ 0.5 ML SYRINGE IV PRN (12:45)
[2023-12-24 19:52] VITALS: BP 124/89; TEMP 97.2; O2SAT 95
[2023-12-24 23:01] VITALS: BP 124/89; TEMP 97.2; O2SAT 95
[2023-12-24 23:05] VITALS: BP 124/89; TEMP 97.2; O2SAT 95
[2023-12-25 05:49] VITALS: BP 121/80; TEMP 97.7
[2023-12-25 07:54] LABS: BASO % 0.2 % (0.0-1.0); EOS # 0.1 10^3/uL (0.0-0.5); EOS % 0.4 % (0.0-3.0); HEMATOCRIT 23.6 % (36.0-47.0); HEMOGLOBIN 7.1 g/dl (12.0-15.5); LYMPH # 0.9 10^3/uL (1.5-5.0); LYMPH % 5.4 % (24.0-44.0); MEAN CORPUSCULAR HEMOGLOBIN 28.3 pg (27.0-33.0); MEAN CORPUSCULAR HGB CONC 30.1 g/dl (32.0-36.5); MONO # 0.6 10^3/uL (0.0-0.8); MONO % 3.6 % (2.0-8.0); NEUTROPHILS # 14.3 10^3/uL (1.5-8.5); NEUTROPHILS % 89.5 % (36.0-66.0); PLATELET COUNT, AUTOMATED 141 10^3/uL (150-450); RED BLOOD COUNT 2.51 10^6/uL (4.00-5.40)
[2023-12-25 09:08] LABS: ALBUMIN 1.5 G/DL (3.2-5.2); ALKALINE PHOSPHATASE 1388 U/L (46-116); ALT/SGPT 84 U/L (7.0-40); AST/SGOT 94 U/L (<34); BILIRUBIN,DIRECT 6.6 MG/DL (<0.4); BILIRUBIN,TOTAL 8.4 MG/DL (0.3-1.2); BLOOD UREA NITROGEN 15 MG/DL (9-23); CALCIUM LEVEL 8.4 MG/DL (8.5-10.1); CARBON DIOXIDE LEVEL 28 MMOL/L (20-31); CHLORIDE LEVEL 95 MMOL/L (98-107); CREATININE FOR GFR 0.62 MG/DL (0.55-1.30); GLOMERULAR FILTRATION RATE > 60.0 (>60); GLUCOSE, FASTING 98 MG/DL (60-100); MAGNESIUM LEVEL 1.6 MG/DL (1.8-2.4); PHOSPHORUS LEVEL 3.3 MG/DL (2.5-4.9); POTASSIUM SERUM 3.3 MMOL/L (3.5-5.1); SODIUM LEVEL 128 MMOL/L (136-145); TOTAL PROTEIN 4.6 G/DL (5.7-8.2)
[2023-12-25 11:30] VITALS: BP 121/76; TEMP 97.7; O2SAT 95
[2023-12-25] MEDS: MORPHINE 30 MG SA TAB PO SCH (12:05)
[2023-12-25] MEDS: POTASSIUM CHLORIDE 10% LIQ 20MEQ/15ML UDC PO ONE (12:56)
[2023-12-25] MEDS: POTASSIUM CHLORIDE 10MEQ SR TABLET PO ONE (15:46)
[2023-12-25] MEDS: TAZOBACTAM SOD IV SCH (18:35)
[2023-12-25] MEDS: NS MINI IV SCH (18:35)
[2023-12-25] MEDS: PIPERACILLIN IV SCH (18:35)
[2023-12-25 19:57] VITALS: BP 121/79; TEMP 97; O2SAT 94
[2023-12-25] MEDS: MORPHINE 15 MG SA TAB PO SCH (21:07)
[2023-12-26 04:05] VITALS: BP 121/76; TEMP 98.1; O2SAT 93
[2023-12-26 07:28] LABS: BASO % 0.2 % (0.0-1.0); EOS # 0.1 10^3/uL (0.0-0.5); EOS % 0.3 % (0.0-3.0); HEMATOCRIT 23.3 % (36.0-47.0); LYMPH # 0.8 10^3/uL (1.5-5.0); LYMPH % 4.9 % (24.0-44.0); MEAN CORPUSCULAR HEMOGLOBIN 27.9 pg (27.0-33.0); MEAN CORPUSCULAR HGB CONC 29.6 g/dl (32.0-36.5); MEAN CORPUSCULAR VOLUME 94.3 fl (80.0-96.0); MONO # 0.6 10^3/uL (0.0-0.8); MONO % 3.5 % (2.0-8.0); NEUTROPHILS # 14.7 10^3/uL (1.5-8.5); NEUTROPHILS % 90.1 % (36.0-66.0); PLATELET COUNT, AUTOMATED 142 10^3/uL (150-450); RED BLOOD COUNT 2.47 10^6/uL (4.00-5.40); WHITE BLOOD COUNT 16.4 10^3/uL (4.0-10.0)
[2023-12-26 07:57] LABS: ALBUMIN 1.5 G/DL (3.2-5.2); ALKALINE PHOSPHATASE 1358 U/L (46-116); ALT/SGPT 79 U/L (7.0-40); AST/SGOT 98 U/L (<34); BILIRUBIN,TOTAL 8.7 MG/DL (0.3-1.2); BLOOD UREA NITROGEN 13 MG/DL (9-23); CALCIUM LEVEL 8.3 MG/DL (8.5-10.1); CARBON DIOXIDE LEVEL 26 MMOL/L (20-31); CHLORIDE LEVEL 95 MMOL/L (98-107); CREATININE FOR GFR 0.54 MG/DL (0.55-1.30); GLOMERULAR FILTRATION RATE > 60.0 (>60); GLUCOSE, FASTING 98 MG/DL (60-100); POTASSIUM SERUM 3.7 MMOL/L (3.5-5.1); SODIUM LEVEL 127 MMOL/L (136-145); TOTAL PROTEIN 4.6 G/DL (5.7-8.2)
[2023-12-26 08:08] LABS: HEMOGLOBIN 6.9 g/dl (12.0-15.5)
[2023-12-26 12:40] VITALS: BP_SYST 128; BP_SYST 129; BP_DIAS 78; BP_DIAS 89; TEMP 97; TEMP 97.5; O2SAT 93; O2SAT 94
[2023-12-26 12:55] VITALS: BP 117/75; TEMP 97.9; O2SAT 93
[2023-12-26 13:55] VITALS: BP 129/86; TEMP 98.1; O2SAT 95
[2023-12-26 14:55] VITALS: BP 125/86; TEMP 97.9; O2SAT 93
[2023-12-26 20:12] VITALS: BP 120/85; TEMP 97.3; O2SAT 92
[2023-12-27 04:00] VITALS: BP 155/85; TEMP 97.9; O2SAT 93
[2023-12-27 07:02] LABS: BASO % 0.2 % (0.0-1.0); EOS # 0.1 10^3/uL (0.0-0.5); EOS % 0.3 % (0.0-3.0); HEMATOCRIT 26.2 % (36.0-47.0); HEMOGLOBIN 8.1 g/dl (12.0-15.5); LYMPH # 0.8 10^3/uL (1.5-5.0); LYMPH % 4.6 % (24.0-44.0); MEAN CORPUSCULAR HEMOGLOBIN 28.9 pg (27.0-33.0); MEAN CORPUSCULAR HGB CONC 30.9 g/dl (32.0-36.5); MEAN CORPUSCULAR VOLUME 93.6 fl (80.0-96.0); MONO # 0.7 10^3/uL (0.0-0.8); NEUTROPHILS # 14.9 10^3/uL (1.5-8.5); NEUTROPHILS % 89.8 % (36.0-66.0); PLATELET COUNT, AUTOMATED 145 10^3/uL (150-450); WHITE BLOOD COUNT 16.6 10^3/uL (4.0-10.0)
[2023-12-27 07:49] LABS: ALBUMIN 1.4 G/DL (3.2-5.2); ALKALINE PHOSPHATASE 1338 U/L (46-116); ALT/SGPT 81 U/L (7.0-40); AST/SGOT 105 U/L (<34); BILIRUBIN,TOTAL 9.3 MG/DL (0.3-1.2); BLOOD UREA NITROGEN 14 MG/DL (9-23); CALCIUM LEVEL 8.7 MG/DL (8.5-10.1); CARBON DIOXIDE LEVEL 27 MMOL/L (20-31); CHLORIDE LEVEL 96 MMOL/L (98-107); CREATININE FOR GFR 0.52 MG/DL (0.55-1.30); GLOMERULAR FILTRATION RATE > 60.0 (>60); GLUCOSE, FASTING 90 MG/DL (60-100); POTASSIUM SERUM 3.4 MMOL/L (3.5-5.1); SODIUM LEVEL 129 MMOL/L (136-145); TOTAL PROTEIN 4.6 G/DL (5.7-8.2)
[2023-12-27 12:02] VITALS: BP 119/81; TEMP 97.3; O2SAT 94
[2023-12-27 20:50] VITALS: BP 125/83; TEMP 97.9; O2SAT 94
[2023-12-28 04:53] VITALS: BP 136/85; TEMP 97.5; O2SAT 96
[2023-12-28 06:59] LABS: BASO % 0.2 % (0.0-1.0); EOS # 0.1 10^3/uL (0.0-0.5); EOS % 0.4 % (0.0-3.0); HEMATOCRIT 24.8 % (36.0-47.0); HEMOGLOBIN 7.7 g/dl (12.0-15.5); LYMPH # 0.7 10^3/uL (1.5-5.0); LYMPH % 4.5 % (24.0-44.0); MEAN CORPUSCULAR HEMOGLOBIN 29.3 pg (27.0-33.0); MEAN CORPUSCULAR VOLUME 94.3 fl (80.0-96.0); MONO # 0.6 10^3/uL (0.0-0.8); MONO % 3.9 % (2.0-8.0); NEUTROPHILS # 13.5 10^3/uL (1.5-8.5); PLATELET COUNT, AUTOMATED 125 10^3/uL (150-450); RED BLOOD COUNT 2.63 10^6/uL (4.00-5.40)
[2023-12-28 07:42] LABS: ALBUMIN 1.4 G/DL (3.2-5.2); ALKALINE PHOSPHATASE 1229 U/L (46-116); ALT/SGPT 78 U/L (7.0-40); AST/SGOT 116 U/L (<34); BLOOD UREA NITROGEN 14 MG/DL (9-23); CALCIUM LEVEL 8.3 MG/DL (8.5-10.1); CARBON DIOXIDE LEVEL 29 MMOL/L (20-31); CHLORIDE LEVEL 96 MMOL/L (98-107); CREATININE FOR GFR 0.48 MG/DL (0.55-1.30); GLOMERULAR FILTRATION RATE > 60.0 (>60); GLUCOSE, FASTING 92 MG/DL (60-100); POTASSIUM SERUM 3.4 MMOL/L (3.5-5.1); SODIUM LEVEL 130 MMOL/L (136-145); TOTAL PROTEIN 4.4 G/DL (5.7-8.2)
[2023-12-28 12:00] VITALS: BP 122/76; TEMP 97; O2SAT 96
[2024-01-02] MEDS ORDERED: DILA4TAB13 PO (22:39)
[2024-01-02] MEDS ORDERED: PROTPAK PO (22:39)
[2024-01-02] MEDS ORDERED: BIOTLIQ9 OR (22:39)
[2024-01-02] MEDS ORDERED: POLY17PO18 PO (22:39)
[2024-01-02] MEDS ORDERED: MSIR30TA PO (22:39)
[2024-01-02] MEDS ORDERED: ONDA-284 PO (22:39)
[2024-01-02] MEDS ORDERED: MORP1CAP32 PO (22:39)
== END 2024-01-02 21:27 | disposition other institution (70) | DRG 871 ==
LOC: M ED 16:42 → EDBD 16:42 → M ED INP 21:27 → M PCU 12-15 14:51 → M MS4PR 12-16 10:12 → M MS5PR 12-20 11:35 → UNDODISIN 12-28 12:40 → M MS5PR 01-02 21:05
PROVIDERS: ADMIT Preventive Medicine Undersea and Hyperbaric Medicine; ATTEND Internal Medicine
PROC: 0W9G30Z Drainage of Peritoneal Cavity with Drainage Device, Percutaneous Approach (ICD-10-PCS; 2023-12-15)
PROC: 0F9030Z Drainage of Liver with Drainage Device, Percutaneous Approach (ICD-10-PCS; 2023-12-15)
PROC: 30233N1 Transfusion of Nonautologous Red Blood Cells into Peripheral Vein, Percutaneous Approach (ICD-10-PCS; principal; 2023-12-18)
PROC: 0W9G3ZZ Drainage of Peritoneal Cavity, Percutaneous Approach (ICD-10-PCS; 2023-12-22)
DX: A41.9 Sepsis, unspecified organism (principal); K75.0 Abscess of liver; K83.1 Obstruction of bile duct; C22.1 Intrahepatic bile duct carcinoma; K56.609 Unspecified intestinal obstruction, unspecified as to partial versus complete obstruction; R18.8 Other ascites; E87.1 Hypo-osmolality and hyponatremia; N17.9 Acute kidney failure, unspecified; D64.9 Anemia, unspecified; R74.01 Elevation of levels of liver transaminase levels; F41.9 Anxiety disorder, unspecified; F32.A Depression, unspecified; Z86.711 Personal history of pulmonary embolism; E28.2 Polycystic ovarian syndrome; Z86.718 Personal history of other venous thrombosis and embolism; Z96.0 Presence of urogenital implants; Z90.79 Acquired absence of other genital organ(s); Z79.899 Other long term (current) drug therapy; Z11.52 Encounter for screening for COVID-19; K83.5 Biliary cyst; K59.00 Constipation, unspecified

== ENCOUNTER 2024-01-02 21:20 | Inpatient (IN) | payer OTHER ==
[~2024-01-02] VITALS: Ht 167.6 cm; Wt 74.6 kg
[2024-01-02] MEDS: DOCUSATE SODIUM 100MG CAPSULE PO SCH (21:00)
[2024-01-02] MEDS: ENOXAPARIN 80MG/0.8ML SYRINGE (J1650 PER 10MG) SQ SCH (21:00)
[~2024-01-02 21:20] MED LIST changes: +DEXA2TA PO; +DEXA4TA PO; +ENOX80IN3 INJ
[2024-01-02] MEDS ORDERED: MSIR30TA PO (22:39)
[2024-01-02] MEDS ORDERED: BIOTLIQ9 OR (22:39)
[2024-01-02] MEDS ORDERED: MORP1CAP32 PO (22:39)
[2024-01-02] MEDS ORDERED: DILA4TAB13 PO (22:39)
[2024-01-02] MEDS ORDERED: POLY17PO18 PO (22:39)
[2024-01-02] MEDS ORDERED: PROTPAK PO (22:39)
[2024-01-02] MEDS ORDERED: ONDA-284 PO (22:39)
[2024-01-02] MEDS ORDERED: HOME MED LIST COMPLETE! XX SCH (22:45)
[2024-01-02] MEDS ORDERED: ACETAMINOPHEN 325 MG TAB PO PRN (22:55)
[2024-01-02] MEDS ORDERED: MAALOX 30 ML SUSP *UDC PO PRN (22:55)
[2024-01-02] MEDS ORDERED: oxyCODONE 5MG TAB PO PRN (22:55)
[2024-01-02] MEDS ORDERED: SALIVA SUBSTITUTE(MOUTHKOTE) BTL MT PRN (22:55)
[2024-01-02] MEDS ORDERED: dexAMETHasone 2 MG TAB PO PRN (22:55)
[2024-01-02 23:13] VITALS: BP 118/79; TEMP 97.5; O2SAT 96
[2024-01-02] MEDS: PIPERACILLIN/TAZOBACTAM SOD 4.5 GM in DEXTROSE 5% (D5W) ADV/MINI-BAG 50 ML IV SCH (23:52)
[2024-01-02] MEDS: MORPHINE 30 MG TAB **MSIR PO SCH (23:52)
[2024-01-03] VITALS (12 sets, daily range): BP systolic 131–139; BP diastolic 79–95; TEMP 97–98.1; O2SAT 94–97
[2024-01-03] MEDS ORDERED: PIPERACILLIN/TAZOBACTAM SOD 3.375 GM in DEXTROSE 5% (D5W) ADV/MINI-BAG 50 ML IV SCH
[2024-01-03 00:24] LABS: INR 1.97; PARTIAL THROMBOPLASTIN TIME 65.2 SECONDS (24.8-34.2); PROTHROMBIN TIME 21.7 SECONDS (12.5-14.5)
[2024-01-03 00:36] LABS: ALKALINE PHOSPHATASE 736 U/L (46-116); ALT/SGPT 66 U/L (7.0-40); AST/SGOT 122 U/L (<34); BILIRUBIN,TOTAL 9.4 MG/DL (0.3-1.2); HEMATOCRIT 21.5 % (36.0-47.0); MAGNESIUM LEVEL 1.7 MG/DL (1.8-2.4); MEAN CORPUSCULAR HEMOGLOBIN 29.6 pg (27.0-33.0); MEAN CORPUSCULAR HGB CONC 31.2 g/dl (32.0-36.5); MEAN CORPUSCULAR VOLUME 95.1 fl (80.0-96.0); PLATELET COUNT, AUTOMATED 125 10^3/uL (150-450); RED BLOOD COUNT 2.26 10^6/uL (4.00-5.40); TOTAL PROTEIN 5.1 G/DL (5.7-8.2); WHITE BLOOD COUNT 10.9 10^3/uL (4.0-10.0)
[2024-01-03 00:48] LABS: HEMOGLOBIN 6.7 g/dl (12.0-15.5)
[2024-01-03] MEDS: SODIUM CHLORIDE 0.9% INJ 10 ML SYR IV PRN (00:56)
[2024-01-03 00:59] LABS: RSV AMPLIFICATION NEGATIVE (NEGATIVE)
[2024-01-03] MEDS: HYDROmorphone 2 MG TAB PO PRN (01:00)
[2024-01-03 01:51] LABS: BLOOD UREA NITROGEN 11 MG/DL (9-23); CALCIUM LEVEL 9.9 MG/DL (8.5-10.1); CARBON DIOXIDE LEVEL 25 MMOL/L (20-31); CHLORIDE LEVEL 99 MMOL/L (98-107); CREATININE FOR GFR 0.38 MG/DL (0.55-1.30); GLOMERULAR FILTRATION RATE > 60.0 (>60); GLUCOSE, FASTING 82 MG/DL (60-100); POTASSIUM SERUM 3.5 MMOL/L (3.5-5.1); SODIUM LEVEL 132 MMOL/L (136-145)
[2024-01-03 06:18] LABS: ALBUMIN 3.1 G/DL (3.2-5.2); ALKALINE PHOSPHATASE 789 U/L (46-116); ALT/SGPT 73 U/L (7.0-40); AST/SGOT 136 U/L (<34); BILIRUBIN,DIRECT 7.3 MG/DL (<0.4); BILIRUBIN,TOTAL 9.8 MG/DL (0.3-1.2); BLOOD UREA NITROGEN 11 MG/DL (9-23); CALCIUM LEVEL 10.3 MG/DL (8.5-10.1); CARBON DIOXIDE LEVEL 25 MMOL/L (20-31); CHLORIDE LEVEL 98 MMOL/L (98-107); CREATININE FOR GFR 0.41 MG/DL (0.55-1.30); GLOMERULAR FILTRATION RATE > 60.0 (>60); GLUCOSE, FASTING 83 MG/DL (60-100); MAGNESIUM LEVEL 1.7 MG/DL (1.8-2.4); POTASSIUM SERUM 3.7 MMOL/L (3.5-5.1); SODIUM LEVEL 131 MMOL/L (136-145); TOTAL PROTEIN 5.4 G/DL (5.7-8.2)
[2024-01-03] MEDS: MIRALAX *UNIT DOSE* 17GM PACKET PO SCH (09:00)
[2024-01-03] MEDS: PANTOPRAZOLE 40MG VIAL IV SCH (09:24)
[2024-01-03] MEDS: ONDANSETRON 4MG ORAL DISINTEGRATING TAB PO SCH (09:24)
[2024-01-03] MEDS: SODIUM CHLORIDE 0.9% INJ 10 ML SYR IV SCH (09:25)
[2024-01-03] MEDS: SIMETHICONE 80MG CHEW TAB PO SCH (16:45)
[2024-01-03] MEDS: HYDROmorphone 4MG TABLET PO PRN (17:47)
[2024-01-03 19:40] LABS: HEMATOCRIT 27.3 % (36.0-47.0); HEMOGLOBIN 8.5 g/dl (12.0-15.5)
[2024-01-04 00:49] LABS: HEMATOCRIT 26.1 % (36.0-47.0); HEMOGLOBIN 8.2 g/dl (12.0-15.5)
[2024-01-04 04:30] VITALS: BP 142/86; TEMP 97.2; O2SAT 97
[2024-01-04 05:38] LABS: HEMATOCRIT 25.6 % (36.0-47.0); HEMOGLOBIN 8.1 g/dl (12.0-15.5)
[2024-01-04 06:16] VITALS: BP 126/85; TEMP 97; O2SAT 96
[2024-01-04 06:16] LABS: ALBUMIN 2.6 G/DL (3.2-5.2); ALKALINE PHOSPHATASE 779 U/L (46-116); ALT/SGPT 75 U/L (7.0-40); AST/SGOT 151 U/L (<34); BILIRUBIN,TOTAL 10.6 MG/DL (0.3-1.2); BLOOD UREA NITROGEN 12 MG/DL (9-23); CALCIUM LEVEL 10.2 MG/DL (8.5-10.1); CARBON DIOXIDE LEVEL 27 MMOL/L (20-31); CHLORIDE LEVEL 99 MMOL/L (98-107); CREATININE FOR GFR 0.35 MG/DL (0.55-1.30); GLOMERULAR FILTRATION RATE > 60.0 (>60); GLUCOSE, FASTING 90 MG/DL (60-100); MAGNESIUM LEVEL 1.7 MG/DL (1.8-2.4); POTASSIUM SERUM 3.4 MMOL/L (3.5-5.1); SODIUM LEVEL 131 MMOL/L (136-145); TOTAL PROTEIN 4.8 G/DL (5.7-8.2)
[2024-01-04 12:00] VITALS: BP 126/84; TEMP 96.8; O2SAT 97
[2024-01-04 13:26] LABS: HEMATOCRIT 25.3 % (36.0-47.0); HEMOGLOBIN 8.1 g/dl (12.0-15.5)
[2024-01-04 18:26] LABS: HEMATOCRIT 26.1 % (36.0-47.0); HEMOGLOBIN 8.3 g/dl (12.0-15.5)
[2024-01-04 20:58] VITALS: BP 146/104; TEMP 97.2
[2024-01-05] VITALS (7 sets, daily range): BP systolic 117–146; BP diastolic 79–104; TEMP 96.8–97.4; O2SAT 95–97
[2024-01-05 05:40] LABS: BASO % 0.3 % (0.0-1.0); EOS # 0.1 10^3/uL (0.0-0.5); EOS % 0.6 % (0.0-3.0); HEMATOCRIT 26.7 % (36.0-47.0); HEMOGLOBIN 8.4 g/dl (12.0-15.5); LYMPH # 0.6 10^3/uL (1.5-5.0); MEAN CORPUSCULAR HEMOGLOBIN 28.8 pg (27.0-33.0); MEAN CORPUSCULAR HGB CONC 31.5 g/dl (32.0-36.5); MEAN CORPUSCULAR VOLUME 91.4 fl (80.0-96.0); MONO # 0.5 10^3/uL (0.0-0.8); MONO % 4.4 % (2.0-8.0); NEUTROPHILS # 10.5 10^3/uL (1.5-8.5); PLATELET COUNT, AUTOMATED 129 10^3/uL (150-450); RED BLOOD COUNT 2.92 10^6/uL (4.00-5.40); WHITE BLOOD COUNT 11.8 10^3/uL (4.0-10.0)
[2024-01-05 06:44] LABS: ALBUMIN 2.5 G/DL (3.2-5.2); ALKALINE PHOSPHATASE 914 U/L (46-116); ALT/SGPT 126 U/L (7.0-40); AST/SGOT 388 U/L (<34); BILIRUBIN,TOTAL 13.7 MG/DL (0.3-1.2); BLOOD UREA NITROGEN 13 MG/DL (9-23); CALCIUM LEVEL 11.2 MG/DL (8.5-10.1); CARBON DIOXIDE LEVEL 26 MMOL/L (20-31); CHLORIDE LEVEL 97 MMOL/L (98-107); CREATININE FOR GFR 0.38 MG/DL (0.55-1.30); GLOMERULAR FILTRATION RATE > 60.0 (>60); GLUCOSE, FASTING 89 MG/DL (60-100); POTASSIUM SERUM 3.7 MMOL/L (3.5-5.1); SODIUM LEVEL 131 MMOL/L (136-145); TOTAL PROTEIN 4.8 G/DL (5.7-8.2)
[2024-01-05 11:08] LABS: HEMATOCRIT 26.6 % (36.0-47.0); HEMOGLOBIN 8.3 g/dl (12.0-15.5)
[2024-01-05] MEDS ORDERED: ISOVUE-370 76% 100ML VIAL As Ordered ONE (11:47)
[2024-01-05] MEDS: predniSONE 20 MG TAB PO SCH (12:46)
[2024-01-05] MEDS: CALCITONIN SALMON (MIACALCIN) 400INTERNATIONAL UNITS/2ML VIAL SQ SCH (12:47)
[2024-01-05] MEDS ORDERED: oxyCODONE 5MG TAB PO PRN (14:05)
[2024-01-05] MEDS: MORPHINE 30 MG SA TAB PO SCH (14:43)
[2024-01-05 15:36] LABS: PHOSPHORUS LEVEL 2.1 MG/DL (2.5-4.9)
[2024-01-05 15:40] LABS: TOTAL 25(OH) VITAMIN D 4.8 NG/ML (20.0-100.0)
[2024-01-05 15:43] LABS: PTH INTACT < 6.3 PG/ML (18.5-88.0)
[2024-01-05] MEDS ORDERED: MORPHINE 30 MG SA TAB PO SCH (21:00)
[2024-01-05] MEDS: traZODone 50 MG TAB PO SCH (21:03)
[2024-01-05] MEDS: MORPHINE 15 MG SA TAB PO SCH (21:03)
[2024-01-06 04:00] VITALS: BP 117/79; TEMP 96.8; O2SAT 95
[2024-01-06 05:14] LABS: BASO % 0.2 % (0.0-1.0); EOS % 0.1 % (0.0-3.0); HEMATOCRIT 30.4 % (36.0-47.0); HEMOGLOBIN 9.4 g/dl (12.0-15.5); LYMPH # 0.9 10^3/uL (1.5-5.0); LYMPH % 5.2 % (24.0-44.0); MEAN CORPUSCULAR HEMOGLOBIN 28.7 pg (27.0-33.0); MEAN CORPUSCULAR HGB CONC 30.9 g/dl (32.0-36.5); MEAN CORPUSCULAR VOLUME 92.7 fl (80.0-96.0); MONO # 0.5 10^3/uL (0.0-0.8); NEUTROPHILS # 15.3 10^3/uL (1.5-8.5); NEUTROPHILS % 90.6 % (36.0-66.0); PLATELET COUNT, AUTOMATED 132 10^3/uL (150-450); RED BLOOD COUNT 3.28 10^6/uL (4.00-5.40); WHITE BLOOD COUNT 16.9 10^3/uL (4.0-10.0)
[2024-01-06 05:48] LABS: ALBUMIN 2.6 G/DL (3.2-5.2); ALKALINE PHOSPHATASE 968 U/L (46-116); ALT/SGPT 147 U/L (7.0-40); AST/SGOT 364 U/L (<34); BILIRUBIN,TOTAL 15.1 MG/DL (0.3-1.2); BLOOD UREA NITROGEN 15 MG/DL (9-23); CALCIUM LEVEL 10.9 MG/DL (8.5-10.1); CARBON DIOXIDE LEVEL 27 MMOL/L (20-31); CHLORIDE LEVEL 96 MMOL/L (98-107); CREATININE FOR GFR 0.34 MG/DL (0.55-1.30); GLOMERULAR FILTRATION RATE > 60.0 (>60); GLUCOSE, FASTING 106 MG/DL (60-100); SODIUM LEVEL 129 MMOL/L (136-145)
[2024-01-06 12:00] VITALS: BP 112/75; TEMP 97.2; O2SAT 96
[2024-01-06] MEDS: HYDROmorphone 2 MG TAB PO PRN (17:09)
[2024-01-06 22:00] VITALS: BP 114/80; TEMP 97.8; O2SAT 95
[2024-01-07 04:53] VITALS: BP 114/79; TEMP 96.8; O2SAT 96
[2024-01-07] MEDS: ALPRAZolam 0.5 MG TAB PO PRN (05:50)
[2024-01-07] MEDS: CIPROFLOXACIN 500MG TABLET PO SCH (06:00)
[2024-01-07 06:01] LABS: BASO % 0.2 % (0.0-1.0); EOS % 0.1 % (0.0-3.0); HEMATOCRIT 28.2 % (36.0-47.0); HEMOGLOBIN 8.9 g/dl (12.0-15.5); LYMPH # 0.8 10^3/uL (1.5-5.0); LYMPH % 4.7 % (24.0-44.0); MEAN CORPUSCULAR HEMOGLOBIN 29.4 pg (27.0-33.0); MEAN CORPUSCULAR HGB CONC 31.6 g/dl (32.0-36.5); MEAN CORPUSCULAR VOLUME 93.1 fl (80.0-96.0); MONO # 0.4 10^3/uL (0.0-0.8); MONO % 2.4 % (2.0-8.0); NEUTROPHILS # 16.3 10^3/uL (1.5-8.5); NEUTROPHILS % 91.3 % (36.0-66.0); PLATELET COUNT, AUTOMATED 131 10^3/uL (150-450); RED BLOOD COUNT 3.03 10^6/uL (4.00-5.40); WHITE BLOOD COUNT 17.8 10^3/uL (4.0-10.0)
[2024-01-07 06:38] LABS: ALBUMIN 2.4 G/DL (3.2-5.2); ALKALINE PHOSPHATASE 1026 U/L (46-116); ALT/SGPT 154 U/L (7.0-40); AST/SGOT 306 U/L (<34); BILIRUBIN,TOTAL 14.6 MG/DL (0.3-1.2); BLOOD UREA NITROGEN 16 MG/DL (9-23); CALCIUM LEVEL 10.8 MG/DL (8.5-10.1); CARBON DIOXIDE LEVEL 28 MMOL/L (20-31); CHLORIDE LEVEL 97 MMOL/L (98-107); CREATININE FOR GFR 0.29 MG/DL (0.55-1.30); GLOMERULAR FILTRATION RATE > 60.0 (>60); GLUCOSE, FASTING 108 MG/DL (60-100); POTASSIUM SERUM 3.8 MMOL/L (3.5-5.1); SODIUM LEVEL 130 MMOL/L (136-145); TOTAL PROTEIN 4.7 G/DL (5.7-8.2)
[2024-01-07 10:00] VITALS: BP 127/88; TEMP 96.8; O2SAT 95
[2024-01-07 12:00] VITALS: BP 127/88; TEMP 96.8; O2SAT 95
[2024-01-07] MEDS: metroNIDAZOLE (FLAGYL) 500MG TABLET PO SCH (13:57)
[2024-01-07 20:32] VITALS: BP 125/85; TEMP 96.8; O2SAT 96
[2024-01-08 04:41] VITALS: BP 125/86; TEMP 97; O2SAT 96
[2024-01-08 07:17] LABS: BASO # 0.1 10^3/uL (0.0-0.2); BASO % 0.2 % (0.0-1.0); EOS # 0.1 10^3/uL (0.0-0.5); EOS % 0.2 % (0.0-3.0); HEMATOCRIT 32.6 % (36.0-47.0); HEMOGLOBIN 10.2 g/dl (12.0-15.5); LYMPH # 1.2 10^3/uL (1.5-5.0); LYMPH % 4.9 % (24.0-44.0); MEAN CORPUSCULAR HEMOGLOBIN 29.1 pg (27.0-33.0); MEAN CORPUSCULAR HGB CONC 31.3 g/dl (32.0-36.5); MEAN CORPUSCULAR VOLUME 93.1 fl (80.0-96.0); MONO # 0.7 10^3/uL (0.0-0.8); MONO % 2.7 % (2.0-8.0); NEUTROPHILS % 90.6 % (36.0-66.0); PLATELET COUNT, AUTOMATED 178 10^3/uL (150-450); WHITE BLOOD COUNT 24.3 10^3/uL (4.0-10.0)
[2024-01-08 08:25] LABS: ALBUMIN 2.5 G/DL (3.2-5.2); ALKALINE PHOSPHATASE 1262 U/L (46-116); ALT/SGPT 180 U/L (7.0-40); AST/SGOT 347 U/L (<34); BILIRUBIN,TOTAL 15.7 MG/DL (0.3-1.2); BLOOD UREA NITROGEN 18 MG/DL (9-23); CALCIUM LEVEL 10.8 MG/DL (8.5-10.1); CARBON DIOXIDE LEVEL 28 MMOL/L (20-31); CHLORIDE LEVEL 97 MMOL/L (98-107); GLOMERULAR FILTRATION RATE > 60.0 (>60); GLUCOSE, FASTING 101 MG/DL (60-100); POTASSIUM SERUM 3.8 MMOL/L (3.5-5.1); SODIUM LEVEL 131 MMOL/L (136-145)
[2024-01-08] MEDS ORDERED: ATROPINE SULFATE 1% OPHTH SOLN 2ML BTL SL PRN (12:10)
[2024-01-08] MEDS ORDERED: HYOSCYAMINE SULFATE 0.125 MG SUBL TABLET PO PRN (12:10)
[2024-01-08] MEDS ORDERED: LORazepam 1 MG TAB SL PRN (12:10)
[2024-01-08] MEDS ORDERED: MORPHINE 10MG/0.5ML ORAL CONCENTRATE SOLUTION U/D SL PRN (12:10)
[2024-01-08] MEDS ORDERED: SCOPOLAMINE 1MG TRANSDERMAL PATCH TOP PRN (12:10)
[2024-01-08] MEDS: LORazepam 1 MG TAB SL SCH (13:22)
[2024-01-08] MEDS: MORPHINE 10MG/0.5ML ORAL CONCENTRATE SOLUTION U/D SL SCH (13:23)
[2024-01-09 14:20] VITALS: O2SAT 96
[2024-01-09] MEDS: MORPHINE 10MG/0.5ML ORAL CONCENTRATE SOLUTION U/D SL PRN (18:13)
[2024-01-12] MEDS ORDERED: MORPHINE SULFATE INJ 100 MG in NS 90 ML IV SCH (10:00)
[2024-01-12] MEDS ORDERED: LORazepam 2 MG/ML 1ML VIAL IV PRN (10:05)
[2024-01-12] MEDS: LORazepam 2 MG/ML 1ML VIAL IV SCH (11:27)
[2024-01-12] MEDS: MORPHINE 10 MG/ML 1ML VIAL IV PRN (11:27)
[2024-01-12] MEDS: MORPHINE SULFATE INJ 100 MG in NS 90 ML IV SCH (13:56)
[2024-01-13] MEDS ORDERED: METOCLOPRAMIDE INJ 10MG/2ML VIAL IV SCH (18:00)
[2024-01-13] MEDS ORDERED: METOCLOPRAMIDE INJ 10MG/2ML VIAL IV PRN (18:10)
[2024-01-15] MEDS ORDERED: MORPHINE SULFATE INJ 100 MG in NS 90 ML IV SCH ×2 (11:50→12:30)
== END 2024-01-15 21:07 | disposition expired | DRG 441 ==
LOC: M MS5PR 21:20
PROVIDERS: ADMIT Internal Medicine; ATTEND Hospitalist
PROC: 30233J1 Transfusion of Nonautologous Serum Albumin into Peripheral Vein, Percutaneous Approach (ICD-10-PCS; 2024-01-02)
PROC: 30233N1 Transfusion of Nonautologous Red Blood Cells into Peripheral Vein, Percutaneous Approach (ICD-10-PCS; principal; 2024-01-03)
DX: K75.0 Abscess of liver (principal); K83.1 Obstruction of bile duct; K65.1 Peritoneal abscess; G93.41 Metabolic encephalopathy; C22.0 Liver cell carcinoma; D68.2 Hereditary deficiency of other clotting factors; R18.8 Other ascites; E87.1 Hypo-osmolality and hyponatremia; K63.2 Fistula of intestine; C78.7 Secondary malignant neoplasm of liver and intrahepatic bile duct; C48.2 Malignant neoplasm of peritoneum, unspecified; R64 Cachexia; F41.9 Anxiety disorder, unspecified; F32.A Depression, unspecified; D50.9 Iron deficiency anemia, unspecified; Z51.5 Encounter for palliative care; Z66 Do not resuscitate; K59.00 Constipation, unspecified; E83.52 Hypercalcemia; R74.01 Elevation of levels of liver transaminase levels; Z95.828 Presence of other vascular implants and grafts; Z86.711 Personal history of pulmonary embolism; Z86.718 Personal history of other venous thrombosis and embolism; Z87.891 Personal history of nicotine dependence; Z79.891 Long term (current) use of opiate analgesic; Z79.899 Other long term (current) drug therapy; Z92.21 Personal history of antineoplastic chemotherapy